=== PATIENT | male | born 1980 | race Caucasian/White ===

== ENCOUNTER → 2017-01-29 | Outpatient (CLI) | payer BC | LOC: FIMAGING 13:51 | DX: M22.42 Chondromalacia patellae, left knee (principal); M70.42 Prepatellar bursitis, left knee; M76.32 Iliotibial band syndrome, left leg; M51.46 Schmorl's nodes, lumbar region; M51.37 Other intervertebral disc degeneration, lumbosacral region; M46.96 Unspecified inflammatory spondylopathy, lumbar region; M46.97 Unspecified inflammatory spondylopathy, lumbosacral region; M48.06 Spinal stenosis, lumbar region; M48.07 Spinal stenosis, lumbosacral region ==